=== PATIENT | female | born 1955 | race Caucasian/White ===

== ENCOUNTER 2016-12-05 01:51 | Emergency (ER) | payer MEDICARE, OTHER ==
[~2016-12-05 01:51] MED LIST: ALBUTEROL17 GM INH; ERY-TAB500 MG PO
[2016-12-05] MEDS ORDERED: LANTUS100 U/ML SUBQ (02:00)
[2016-12-05] MEDS ORDERED: HUMALOG100 UNIT/1 SUBQ (02:01)
[2016-12-05] MEDS ORDERED: HYDROCODONE PO (02:01)
[2016-12-05] MEDS ORDERED: ZOCOR (02:01)
[2016-12-05] MEDS ORDERED: VITAMIN D (02:01)
[2016-12-05] MEDS ORDERED: FLEXERIL10 MG PO (02:02)
[2016-12-05] MEDS ORDERED: PHENERGAN (02:02)
[2016-12-05 02:44] LABS: BASOPHIL# 0.2 X10e3 (0-0.3); BASOPHIL% 1.1 % (0-2.5); EOSINOPHIL# 0.4 X10e3 (0-0.7); EOSINOPHIL% 3.1 % (0.0-7.0); HEMATOCRIT 36.8 % (35.0-45.0); HEMOGLOBIN 12.1 gm/dL (12.0-16.0); LYMPHOCYTE# 3.9 X10e3 (1.0-3.5); LYMPHOCYTE% 27.9 % (17.0-45.0); MEAN CELL VOLUME 82.5 FL (83-96); MEAN CORPUSCULAR HEMOGLOBIN 27.2 PG (28-34); MEAN PLATELET VOLUME 9.8 FL (6.5-11.5); NEUTROPHIL# 8.5 X10e3 (1.5-7.1); NEUTROPHIL% 60.9 % (40-75); PLATELET COUNT 190 X10e3 (140-420); RED BLOOD COUNT 4.46 X10e (3.90-5.30); RED CELL DISTRIBUTION WIDTH 14.8 % (11.0-15.5); WHITE BLOOD COUNT 13.9 X10e3 (4.0-10.5)
[2016-12-05 02:47] LABS: DIFF IND NO
[2016-12-05 03:01] LABS: BUN/CREATININE RATIO 21.81; CALCIUM SERUM 9.1 mg/dL (8.4-10.2); CREATININE SERUM 1.1 mg/dL (0.6-1.4); GLOM FILT RATE Estimated 54.9 mL/min (>60); POTASSIUM 4.2 mmol/L (3.5-5.1)
== END 2016-12-05 03:28 | disposition home or self-care (01) ==
LOC: SED 01:51
PROVIDERS: Emergency Medicine
DX: L03.031 Cellulitis of right toe (principal); E11.9 Type 2 diabetes mellitus without complications; F17.200 Nicotine dependence, unspecified, uncomplicated; Z79.4 Long term (current) use of insulin; Z88.5 Allergy status to narcotic agent; Z88.6 Allergy status to analgesic agent
CPT/HCPCS: 36415; 80048; 85025; 96365; 99284; J0295